=== PATIENT | female | born 1955 | race Caucasian/White ===

== ENCOUNTER 2017-01-27 10:59 | Emergency (ER) | payer MEDICAID ==
[~2017-01-27] VITALS: Ht 157.5 cm; Wt 139.5 kg
[2017-01-27 11:03] VITALS: BP 132/60; PULSE 91; TEMP 98.1
[2017-01-27 13:08] LABS: MEAN CELL VOLUME 78 fl (80.0-100.0); MEAN CORPUSCULAR HGB CONC 32 g/dl (33.0-37.0); MEAN PLATELET VOLUME 11.6 fl (7.4-10.4); PLATELET COUNT 288 K/mm3 (130-400); RED BLOOD COUNT 4.45 M/mm3 (4.10-5.30); REDCELL DISTRIBUTION WIDTH-CV 17.8 % (11.5-14.5); WHITE BLOOD COUNT 15.4 K/mm3 (4.8-10.8)
[2017-01-27 13:09] LABS: HEMATOCRIT 34.9 % (37.0-47.0); HEMOGLOBIN 11.2 g/dl (12.5-16.0); MEAN CORPUSCULAR HEMOGLOBIN 25 pg (27.0-31.0)
[2017-01-27 13:10] LABS: ADD PATHOLOGY DIFF REVIEW NO
[2017-01-27 13:19] LABS: ADJUSTED CALCIUM 9.4 mg/dL (8.4-10.2); ALBUMIN 4.1 gm/dL (3.5-5.0); BILIRUBIN,TOTAL 0.6 mg/dL (0.0-1.0); CALCIUM 9.5 mg/dL (8.4-10.2); CREATININE, serum 0.84 mg/dL (0.52-1.25); POTASSIUM 4.3 mmol/L (3.4-5.0); TOTAL PROTEIN 7.3 gm/dL (6.4-8.2)
[2017-01-27 13:57] LABS: BAND 3 % (0-10); NEUTROPHILS 82 % (42.0-75.2); TOTAL CELLS COUNTED 100
[2017-01-27 13:58] LABS: HYPOCHROMIA 1+; POLYCHROMASIA 1+
[2017-01-27 13:59] LABS: MICROCYTOSIS 1+; PLATELET ESTIMATE NORMAL (NORMAL)
[2017-01-27] MEDS ORDERED: CLINDAMYCIN150 MG PO (14:15)
[2017-01-27] MEDS ORDERED: CEPHALEXIN500 M1 PO (14:30)
[2017-01-27] MEDS ORDERED: FOLIC ACID0.4 MG PO (14:30)
[2017-01-27] MEDS ORDERED: PRINZIDE 25 MG-1 TAB PO (14:31)
[2017-01-27] MEDS ORDERED: JANUVIA 100MG100 MG PO (14:31)
[2017-01-27] MEDS ORDERED: ACTOS 15MG TAB15 MG PO (14:32)
[2017-01-27] MEDS ORDERED: MEVACOR40 MG PO (14:32)
[2017-01-27] MEDS ORDERED: GLUCOPHAGE850 MG/TAB PO (14:33)
[2017-01-27] MEDS ORDERED: VITAMIN D3400 I1 PO (14:33)
[2017-01-27] MEDS ORDERED: TESSALON P100 MG/CAP PO (14:33)
[2017-01-27] MEDS ORDERED: PROAIR HFA0.09 MG/AC IH (14:33)
[2017-01-27] MEDS ORDERED: B-12 500 MCG (14:33)
[2017-01-27] MEDS ORDERED: ASPIRIN 81M81 MG/TA2 PO (14:34)
[2017-01-27] MEDS ORDERED: SYNTHROID0.125 MG/T PO (14:34)
[2017-01-27] MEDS ORDERED: PREDNISONE10 MG PO (14:34)
== END 2017-01-27 14:55 | disposition home or self-care (01) ==
LOC: COL.ER 10:59
PROVIDERS: Physician Assistant Medical
DX: S40.862A Insect bite (nonvenomous) of left upper arm, initial encounter (principal); L03.114 Cellulitis of left upper limb; W57.XXXA Bitten or stung by nonvenomous insect and other nonvenomous arthropods, initial encounter; E11.9 Type 2 diabetes mellitus without complications; Z79.84 Long term (current) use of oral hypoglycemic drugs; I10 Essential (primary) hypertension

== ENCOUNTER 2017-02-03 12:58 | Emergency (ER) | payer MEDICAID ==
[~2017-02-03] VITALS: Ht 157.5 cm; Wt 139.5 kg
[~2017-02-03 12:58] MED LIST: ACTOS 15MG TAB15 MG PO; ASPIRIN 81M81 MG/TA2 PO; B-12 500 MCG; CEPHALEXIN500 M1 PO; CLINDAMYCIN150 MG PO; FOLIC ACID0.4 MG PO; GLUCOPHAGE850 MG/TAB PO; JANUVIA 100MG100 MG PO; MEVACOR40 MG PO; PREDNISONE10 MG PO; PRINZIDE 25 MG-1 TAB PO; PROAIR HFA0.09 MG/AC IH; SYNTHROID0.125 MG/T PO; TESSALON P100 MG/CAP PO; VITAMIN D3400 I1 PO
[2017-02-03 13:09] VITALS: TEMP 98.1
[2017-02-03] MEDS ORDERED: ULTRAM 50MG TAB50 MG PO (14:04)
[2017-02-03 14:16] VITALS: BP 132/60; PULSE 80
== END 2017-02-03 14:17 | disposition home or self-care (01) ==
LOC: COL.ER 12:58
DX: T63.301D Toxic effect of unspecified spider venom, accidental (unintentional), subsequent encounter (principal); S41.152D Open bite of left upper arm, subsequent encounter; E11.9 Type 2 diabetes mellitus without complications; I10 Essential (primary) hypertension; Z79.84 Long term (current) use of oral hypoglycemic drugs